=== PATIENT | female | born 1995 | race African-American/Black ===

== ENCOUNTER 2020-12-23 13:37 | Emergency (ER) | payer OTHER ==
[2020-12-23 14:01] VITALS: BP 112/74; PULSE 74; TEMP 98.4; BMI 31.4
== END 2020-12-23 14:52 | disposition home or self-care (01) ==
LOC: JERFT 13:37
DX: Z77.098 Contact with and (suspected) exposure to other hazardous, chiefly nonmedicinal, chemicals (principal)
CPT/HCPCS: 99282-25

== ENCOUNTER 2021-05-30 21:30 | Emergency (ER) | payer OTHER ==
[2021-05-30 21:43] VITALS: BP 107/72; PULSE 98; TEMP 98.6; BMI 33.3
[2021-05-30] MEDS ORDERED: DIPHTH,PERTUSS(ACELL),TET 0.5 ML DISP.SYRIN IM ONE ×2 (22:11→22:14)
[2021-05-30 22:40] LABS: BASO % 0.5 % (0-2.0); EOS % 2.3 % (0-4.5); HEMATOCRIT 35.3 % (32.4-45.2); HEMOGLOBIN 11.7 GM/dL (10.7-15.3); LYMPH % 34.3 % (8-40); MCH 27.7 pg (25.7-33.7); MCHC 33.2 g/dl (32.0-36.0); MEAN CELL VOLUME 83.2 fl (80-96); MONO % 7.6 % (3.8-10.2); NEUT % 55.3 % (42.8-82.8); PLATELET COUNT 285 10^3/uL (134-434); RBC 4.24 M/mm3 (3.60-5.2); RDW 14.6 % (11.6-15.6); WHITE BLOOD COUNT 5.2 K/mm3 (4.0-10.0)
[2021-05-30 23:02] LABS: CALCIUM 8.9 mg/dL (8.5-10.1)
[2021-05-30 23:03] LABS: ALBUMIN 3.6 g/dl (3.4-5.0); BLOOD UREA NITROGEN 10.2 mg/dL (7-18)
[2021-05-30 23:06] LABS: CREATININE 0.9 mg/dL (0.55-1.3)
[2021-05-30 23:08] LABS: BILIRUBIN,TOTAL 0.2 mg/dL (0.2-1); TOT PROT 6.8 g/dl (6.4-8.2)
[2021-05-30 23:54] LABS: HIV INTERPRETATION NEGATIVE (NEGATIVE)
== END 2021-05-30 23:15 | disposition home or self-care (01) ==
LOC: JERFT 21:30
PROC: 3E0234Z Introduction of Serum, Toxoid and Vaccine into Muscle, Percutaneous Approach (ICD-10-PCS; principal; 2021-05-30)
DX: Z77.21 Contact with and (suspected) exposure to potentially hazardous body fluids (principal)
CPT/HCPCS: 36415; 80053; 85025; 86704; 86803; 87340; 87389; 87517; 90715; 99284-25

== ENCOUNTER 2021-06-19 11:39 | Emergency (ER) | payer OTHER ==
[2021-06-19 11:58] VITALS: BP 105/68; PULSE 89; TEMP 98.6; BMI 33.3
== END 2021-06-19 12:44 | disposition home or self-care (01) ==
LOC: JERFT 11:39
DX: H57.89 Other specified disorders of eye and adnexa (principal); Z77.21 Contact with and (suspected) exposure to potentially hazardous body fluids
CPT/HCPCS: 99281-25